=== PATIENT | male | born 1945 | race Caucasian/White ===

== ENCOUNTER 2017-07-31 19:13 | Inpatient (IN) | payer OTHER ==
[~2017-07-31] VITALS: Ht 170.2 cm; Wt 81.8 kg
[~2017-07-31 19:13] MED LIST: AMLODIPINE BESYL5 MG PO; CALCIUM + D3 E1 EACH PO; CO Q-10200 MG PO; FISH OIL 1,0001 EAC7 PO; GLUCOSAMINE &1 EAC1 PO; HYDROCHLOROTH12.5 M3 PO; METOPROLOL SUCC25 MG PO; MULTIVITAMIN1 EAC2 PO; PRAVASTATIN SOD80 MG PO; PROBIOTIC1 EAC1 PO; ST. JOSEPH ASPI81 MG PO; VITAMIN C1000 MG PO
[2017-07-31 19:46] LABS: HEMATOCRIT 44.2 % (38.0-50.0); HEMOGLOBIN 15.3 G/DL (12.5-16.6); MCH 30.1 PG (29.0-34.0); MCHC 34.6 G/DL (30.0-36.0); MCV 86.8 FL (86-99); PLATELET COUNT 191 K/uL (156-360); RBC DIS.WIDTH-CV 12.3 % (11.8-14.6); RBC DIS.WIDTH-SD 38.9 % (39-53); RED BLOOD COUNT 5.09 M/uL (4.00-5.50); WHITE BLOOD COUNT 13.2 K/uL (4.1-10.2)
[2017-07-31 19:58] LABS: ALBUMIN 4.4 g/dL (3.2-4.8)
[2017-07-31 19:59] LABS: CHLORIDE 100 mEq/L (99-109); POTASSIUM 3.9 mEq/L (3.7-5.4); SODIUM 137 mEq/L (136-147)
[2017-07-31 20:01] LABS: GLUCOSE 115 mg/dL (70-99); TOTAL PROTEIN 7.7 g/dL (6.4-8.3)
[2017-07-31 20:03] LABS: TOTAL BILIRUBIN 1.7 mg/dL (0.0-1.0)
[2017-07-31 20:04] LABS: ALKALINE PHOSPHATASE 98 IU/L (3-129)
[2017-07-31 20:05] LABS: CREATININE 0.7 mg/dL (0.6-1.3); GFR ESTIMATE (CALCULATED) > 59 mL/min/ (58.99-99999)
[2017-07-31 20:06] LABS: AST (GOT) 18 IU/L (2-34); UREA NITROGEN (BUN) 16 mg/dL (9-23)
[2017-07-31 20:08] LABS: ALT (GPT) 20 IU/L (3-49)
[2017-07-31 20:09] LABS: APPEARANCE CLEAR ((CLEAR)); BILIRUBIN NEGATIVE; BLOOD SMALL; COLOR YELLOW ((YELLOW)); GLUCOSE (STRIP) NEGATIVE; KETONES 20; LEUKOCYTES NEGATIVE; NITRITE NEGATIVE; PROTEIN (STRIP) NEGATIVE; SPECIFIC GRAVITY 1.024 (1.000-1.030); UROBILINOGEN 0.2 MG/DL (0.2-1.0)
[2017-07-31 20:17] LABS: BACTERIA NONE SEEN /HPF; EPITHELIAL CELLS NONE SEEN /HPF; MUCUS TRACE /LPF; RED BLOOD CELLS 0-5 /HPF (0-5); UCUL ADDED? NO; WHITE BLOOD CELLS 0-5 /HPF (0-5)
[2017-07-31] MEDS ORDERED: RANITIDINE HCL150 MG PO (23:24)
[2017-07-31] MEDS ORDERED: VOLTAREN50 MG PO (23:24)
[2017-07-31] MEDS ORDERED: WELCHOL625 MG PO (23:24)
[2017-07-31] MEDS ORDERED: CALAN120 MG PO (23:24)
[2017-07-31] MEDS ORDERED: TURMERIC 500 M1 EACH PO (23:25)
[2017-07-31] MEDS ORDERED: CELEXA10 MG PO (23:26)
[2017-08-01 01:35] VITALS: BP 144/70
[2017-08-01 03:30] VITALS: BP 131/70
[2017-08-01 07:14] LABS: HEMATOCRIT 39.5 % (38.0-50.0); HEMOGLOBIN 13.4 G/DL (12.5-16.6); MCH 29.8 PG (29.0-34.0); MCHC 33.9 G/DL (30.0-36.0); PLATELET COUNT 178 K/uL (156-360); RBC DIS.WIDTH-CV 12.3 % (11.8-14.6); RBC DIS.WIDTH-SD 39.8 % (39-53); RED BLOOD COUNT 4.49 M/uL (4.00-5.50); WHITE BLOOD COUNT 11.7 K/uL (4.1-10.2)
[2017-08-01 07:35] VITALS: BP 145/80
[2017-08-01 10:57] VITALS: BP 135/69
[2017-08-01 15:54] VITALS: BP 121/60
[2017-08-01 20:00] VITALS: BP 131/66
[2017-08-02 00:29] VITALS: BP 125/61
[2017-08-02 04:48] VITALS: BP 123/65
[2017-08-02 07:55] LABS: BASOPHIL (%) 0.6 % (0-1); EOSINOPHIL (%) 2.3 % (0-5); EOSINOPHIL COUNT 0.2 K/uL (0-0.3); HEMATOCRIT 34.6 % (38.0-50.0); HEMOGLOBIN 11.7 G/DL (12.5-16.6); IMMATURE GRANULOCYTE (%) 0.3 % (0.0-0.7); LYMPHOCYTE COUNT 1.2 K/uL (1.0-2.8); MCH 30.7 PG (29.0-34.0); MCHC 33.8 G/DL (30.0-36.0); MCV 90.8 FL (86-99); MONOCYTE (%) 12.5 % (3-12); MONOCYTE COUNT 0.9 K/uL (0-0.8); NEUTROPHIL (%) 67.3 % (45-76); NEUTROPHIL COUNT 4.7 K/uL (1.8-6.4); PLATELET COUNT 137 K/uL (156-360); RBC DIS.WIDTH-CV 12.5 % (11.8-14.6); RBC DIS.WIDTH-SD 41.2 % (39-53); RED BLOOD COUNT 3.81 M/uL (4.00-5.50); WHITE BLOOD COUNT 6.9 K/uL (4.1-10.2)
[2017-08-02 08:01] LABS: ALBUMIN 3.2 G/DL (3.2-4.8); ALKALINE PHOSPHATASE 86 IU/L (3-129); ALT (GPT) 23 IU/L (3-49); AST (GOT) 20 IU/L (2-34); CHLORIDE 107 MEQ/L (99-109); CREATININE 0.7 MG/DL (0.6-1.3); GFR ESTIMATE (CALCULATED) > 59 mL/min/ (58.99-99999); GLUCOSE 111 mg/dL (70-99); SODIUM 140 MEQ/L (136-147); TOTAL BILIRUBIN 0.8 MG/DL (0.0-1.0); TOTAL PROTEIN 5.3 G/DL (6.4-8.3); UREA NITROGEN (BUN) 10 mg/dL (9-23)
[2017-08-02 08:12] VITALS: BP 140/61
[2017-08-02 11:46] VITALS: BP 92/67
[2017-08-02 15:38] VITALS: BP 126/62
[2017-08-02 20:31] VITALS: BP 148/66
[2017-08-03 00:14] VITALS: BP 144/70
[2017-08-03 04:15] VITALS: BP 138/72
[2017-08-03 06:45] LABS: HEMATOCRIT 36.4 % (38.0-50.0); HEMOGLOBIN 12.2 G/DL (12.5-16.6); MCH 29.8 PG (29.0-34.0); MCHC 33.5 G/DL (30.0-36.0); PLATELET COUNT 166 K/uL (156-360); RBC DIS.WIDTH-CV 12.1 % (11.8-14.6); RBC DIS.WIDTH-SD 39.9 % (39-53); RED BLOOD COUNT 4.09 M/uL (4.00-5.50); WHITE BLOOD COUNT 6.1 K/uL (4.1-10.2)
[2017-08-03 07:14] LABS: CHLORIDE 107 MEQ/L (99-109); CREATININE 0.7 MG/DL (0.6-1.3); GFR ESTIMATE (CALCULATED) > 59 mL/min/ (58.99-99999); GLUCOSE 98 mg/dL (70-99); POTASSIUM 3.9 MEQ/L (3.7-5.4); SODIUM 142 MEQ/L (136-147); UREA NITROGEN (BUN) 8 mg/dL (9-23)
[2017-08-03 07:47] VITALS: BP 148/73
[2017-08-03 11:11] VITALS: BP 135/63
[2017-08-03] MEDS ORDERED: METRONIDAZOLE500 MG PO (12:18)
[2017-08-03] MEDS ORDERED: CIPRO500 MG PO (12:18)
== END 2017-08-03 13:00 | disposition home or self-care (01) | DRG 392 ==
LOC: EME 19:13 → EDOF 08-01 00:27 → 2EAST 08-01 00:27 → ENRESERV 08-01 00:30 → 2EAST 08-01 01:13
PROVIDERS: Hospitalist; Physician Assistant; Physician Assistant Surgical
DX: K57.20 Diverticulitis of large intestine with perforation and abscess without bleeding (principal); J98.11 Atelectasis; J90 Pleural effusion, not elsewhere classified; I71.2 Thoracic aortic aneurysm, without rupture; J43.9 Emphysema, unspecified; K21.9 Gastro-esophageal reflux disease without esophagitis; E78.5 Hyperlipidemia, unspecified; I10 Essential (primary) hypertension; M19.90 Unspecified osteoarthritis, unspecified site; R00.1 Bradycardia, unspecified; Z87.891 Personal history of nicotine dependence; Z79.82 Long term (current) use of aspirin; Z90.49 Acquired absence of other specified parts of digestive tract; Z82.0 Family history of epilepsy and other diseases of the nervous system
CPT/HCPCS: 74177; 80048; 80053; 81003; 83605; 85025; 85027; 87493; 93005; 99281; 99285; J0744; J1644; J1885; J2270; J2405; J3010; J7030; S0030